=== PATIENT | male | born 1985 | race Caucasian/White ===

== ENCOUNTER 2022-05-20 18:41 | Emergency (ER) | payer BC, OTHER ==
--- NOTE | 2022-05-20 19:30 | NUR ---
PATIENT CALL TO TRIAGE, NO RESPONSE PATIENT LEFT WITHOUT BEING SEEN BY DR. PALMA. NO FURTHER CARE PROVIDED FOR PATIENT.
--- NOTE | 2022-05-20 19:35 | NUR ---
CALLED FOR THE SECOND TIME , NO RESPONSE
--- NOTE | 2022-05-20 19:45 | NUR ---
CALLED FOR THE THIRD TIME, NO RESPONSE
== END 2022-05-20 19:30 | disposition left against medical advice (07) ==
LOC: MED 18:41
DX: M79.672 Pain in left foot (principal); Z53.21 Procedure and treatment not carried out due to patient leaving prior to being seen by health care provider